=== PATIENT | male | born 1960 | race Caucasian/White ===

== ENCOUNTER 2017-09-12 19:12 | Inpatient (IN) | payer OTHER ==
[~2017-09-12] VITALS: Ht 177.8 cm; Wt 76.3 kg
[2017-09-12 19:19] VITALS: Ht 177.8 cm; Wt 76.3 kg
[2017-09-12 21:14] LABS: BASOPHIL % 0.3 % (0-2); PLATELET COUNT 239 x10^3mcL (130-400); RED CELL DISTRIBUTION WIDTH 13.7 % (11.5-14.5)
[2017-09-12 21:22] LABS: CALCIUM 9.6 mg/dL (8.5-10.1); CARBON DIOXIDE 27.5 mmol/L (21-32); CHLORIDE SERUM 102 mmol/L (98-107); CREATININE SERUM 0.8 mg/dL (0.7-1.3); GFR1 > 60 mL/min; GLUCOSE SERUM 124 mg/dL (74-106); POTASSIUM SERUM 4.6 mmol/L (3.5-5.1); SODIUM SERUM 137 mmol/L (136-145)
[2017-09-12 21:26] LABS: ALBUMIN 3.8 g/dL (3.4-5.0); ALKALINE PHOSPHATASE 97 U/L (46-116); ALT/SGPT 44 U/L (16-63); AST/SGOT 25 U/L (15-37); BILIRUBIN TOTAL 0.86 mg/dL (0.20-1.00); TOTAL PROTEIN, SERUM 7.5 g/dL (6.4-8.2)
[2017-09-12 21:29] LABS: AMPHETAMINE QUAL UR NONE DETECTED (NEG <=1000)
[2017-09-12 21:40] LABS: FREE T4 1.1 ng/dL (0.76-1.46); FREE THYROXINE INDEX 2.9 ug/dL (1.4-4.5)
[2017-09-12 21:58] LABS: T3 TOTAL 1.2 ng/mL
[2017-09-12] MEDS ORDERED: METFORMIN HYDR500 M1 PO (22:50)
[2017-09-12] MEDS ORDERED: GEMFIBROZIL600 MG PO (22:50)
[2017-09-12] MEDS ORDERED: GOOD SENSE OMEP20 MG PO (22:51)
[2017-09-12] MEDS ORDERED: TAMSULOSIN HYD0.4 M1 PO (22:52)
[2017-09-12 23:25] VITALS: BP 135/77
[2017-09-13 02:18] LABS: CHOLESTEROL/HDL RATIO 4.4; MAGNESIUM 2.2 mg/dL (1.8-2.4); PHOSPHOROUS 4.5 mg/dL (2.5-4.9)
[2017-09-13 05:04] LABS: microscopic required? NO
[2017-09-13 05:21] LABS: UA SPECIFIC GRAVITY 1.025 (1.005-1.035); urine erythrocyte NEGATIVE (NEGATIVE)
[2017-09-13 05:30] VITALS: BP 102/61
[2017-09-13 09:50] VITALS: BP 130/75
[2017-09-13 13:30] VITALS: BP 123/75
[2017-09-13 13:53] VITALS: BP 123/75
== END 2017-09-13 14:37 | disposition home or self-care (01) | DRG 391 ==
LOC: ED 19:12 → DU 22:48
PROVIDERS: Emergency Medicine; Family Medicine
DX: K21.9 Gastro-esophageal reflux disease without esophagitis (principal); N17.0 Acute kidney failure with tubular necrosis; E11.9 Type 2 diabetes mellitus without complications; E78.00 Pure hypercholesterolemia, unspecified; N40.0 Benign prostatic hyperplasia without lower urinary tract symptoms; Z90.49 Acquired absence of other specified parts of digestive tract; Z79.84 Long term (current) use of oral hypoglycemic drugs; Z79.899 Other long term (current) drug therapy
CPT/HCPCS: 83880; 84439; J7030; Q0092